=== PATIENT | female | born 1990 | race Caucasian/White ===

== ENCOUNTER 2025-07-16 19:31 | Emergency (ER) | payer SELFPAY ==
[2025-07-16 19:37] VITALS: BMI 16.8
[2025-07-16 19:38] VITALS: BP 114/76
--- NOTE | 2025-07-16 20:04 | ED.GENMED ---
History of Present Illness
General
Chief Complaint: Psychiatric Problem
Source: patient and ambulance crew
Exam Limitations: altered mental status
Time Seen by Provider: 07/16/25 19:38
Nursing documentation reviewed up to this point in time: agreed with
History of Present Illness
History of Present Illness:
34-year-old female via EMS apparently has OCD and Asperger's has been walking around knocking on neighbors doors family believe she is unsafe here she is unkept, has bruising on her bilateral elbows and thighs cannot tell me how it got there
Past History
Past History
ED Past Medical History: Psychiatric
Social History
Living: with family
Employment: Not employed
Family History
Family History: Unable to obtain (Patient poor historian)
Review of Systems
Review of Systems
Other source history: ambulance crew
All Other Systems: Not applicable
Phy Exam
Physical Exam
Physical Exam:
Physical Exam
General: Disheveled disorganized female
Neck: Pale appearing no overt signs of trauma
Heart: Regular
Lungs: no acute respiratory distress.
Neuro: alert and oriented. no focal neurological deficits
Skin: no rash
Psychiatric: Disorganized
Extremities: Bruising on her bilateral elbows bruising on her anterior thighs
Course
Orders/Labs/Results
Orders:
Orders
07/16/25 19:59
Elbow, 2 View, Right [CR Elbow - Right Min 2 View] Urgent
Comment:
Reason For Exam: byursing
Elbow, Left, 2 View [CR Elbow - Left Min 2 View] Urgent
Comment:
Reason For Exam: brusing
Femur, Left 2 View [CR Femur - Left Min 2 Vw] Urgent
Comment:
Reason For Exam: brusing
Femur, Right 2 View [CR Femur - Right Min 2 Vw] Urgent
Comment:
Reason For Exam: brusing
07/16/25 20:01
Crisis Consult Urgent
Reason for Consult: 302?
Test Result ONCE
07/16/25 20:04
CT Head W/o Iv Contrast Urgent
Comment:
Reason For Exam: ? trauma
07/16/25 20:05
CT Cervical Spine W/o Iv Contr Urgent
Comment:
Reason For Exam: trauma
07/16/25 20:23
Acetaminophen Urgent
Alcohol Urgent
Complete Blood Count/With Diff Urgent
Comprehensive Metabolic Panel Urgent
HCG, Serum Qualitative Screen Urgent
Salicylate Urgent
Abnormal Lab Results
07/16/25
20:23
RBC 3.89 L 10^6/uL
(4.20-5.40)
Hgb 11.7 L g/dL
(12.0-16.0)
Hct 35.8 L %
(37.0-47.0)
MCHC 32.7 L g/dL
(33.0-37.0)
Monocytes % 9.7 H %
(1.7-9.3)
Alkaline Phosphatase 32 L U/L
(38-126)
Salicylates < 1.0 L mg/dl
(2.0-20.0)
Acetaminophen < 10 L ug/ml
(10-30)
07/16/25 20:23
07/16/25 20:23
Vital Signs
Initial and Last Documented VS:
Initial Vital Signs
Temp Pulse Resp BP Pulse Ox
97.7 F 68 18 114/76 100
07/16/25 19:38 07/16/25 19:38 07/16/25 19:38 07/16/25 19:38 07/16/25 19:38
Last Documented Vital Signs
Temp Pulse Resp BP Pulse Ox
97.7 F 68 18 114/76 100
07/16/25 19:38 07/16/25 19:38 07/16/25 19:38 07/16/25 19:38 07/16/25 19:38
MDM/Problems Addressed
Differential Diagnosis Includes:
Mental illness falls trauma intoxication rhabdo
Chronic conditions affecting care: Psychiatric illness
Acute Exacerbation and/or Progression of Chronic Illness: Psychiatric illness
*Radiology
Radiology exam reviewed: preliminary read by ED provider
*Pulse Oximetry
Patient hypoxic: no
*Critical Care Note
Total Time (30-74mins, 75-104mins- exclusive of procedures): Not Applicable
Update Note
Update Note:
10:45 PM update labs noted plain films noted no obvious fracture awaiting CT reports
Patient has been cleared by crisis
ED Attending Note
-
Portions of this chart may have been created with voice recognition software.� Occasional wrong word or��sound alike� substitutions may have occurred due to the inherent limitations of voice recognition software.
Discharge Plan
Departure
Patient Disposition: Home (Routine Discharge)
Date of Disposition: 07/16/25
Time of Disposition: 22:59
Patient with high blood pressure during this ER visit?: No
Condition: Good
Discharge Problem:
Contusion
Instructions: Contusion, Minor contusion - ED (DC)
Referrals:
UNKNOWN - PT DOES,NOT KNOW [Family Provider]
Interventions
Interventions:
*Risk Screen - Suicide Last Done: 07/16/25 19:45
*General Assessment Last Done: 07/16/25 19:45
*Neglect/Abuse Screening Last Done: 07/16/25 19:45
*ED- Fall Risk Assessment Last Done: 07/16/25 19:45
*ED COVID-19 Vaccine History Last Done: 07/16/25 19:45
ED-Psychological Assessment Last Done: 07/16/25 21:30
Discharge Date and Time
Print Language: HUNGARIAN
[2025-07-16 20:38] LABS: Hematocrit 35.8 % (37.0-47.0); Hemoglobin 11.7 g/dL (12.0-16.0); Mean Corp Hgb Conc. 32.7 g/dL (33.0-37.0); Mean Corpuscular Volume 92.0 fL (81.0-99.0); Nucleated Red Blood Cells % 0 %; Platelet Count 168 10^3/uL (130-400); Red Cell Dist. Width 12.1 % (11.5-14.5)
[2025-07-16 20:59] LABS: HCG, Serum Qualitative Screen Negative
[2025-07-16 21:05] LABS: ALT (SGPT) 24 U/L (0-35); AST (SGOT) 26 U/L (14-36); Acetaminophen < 10 ug/ml (10-30); Albumin 4.8 g/dl (3.5-5.0); Alkaline Phosphatase 32 U/L (38-126); Blood Urea Nitrogen 16 mg/dl (7-17); Calcium 9.9 mg/dl (8.4-10.2); Carbon Dioxide 29 mmol/L (22-30); Chloride 104 mmol/L (98-107); Estimated Creatinine Clearance 84 ml/min; Glucose 84 mg/dl (70-99); Potassium 4.2 mmol/L (3.5-5.1); Salicylate < 1.0 mg/dl (2.0-20.0); Sodium 139 mmol/L (135-145); Total Protein 7.6 g/dl (6.3-8.2); eGFR > 60.00
== END 2025-07-16 23:51 | disposition home or self-care (01) ==
LOC: EMR 19:31
PROVIDERS: EMERGENCY PHYSICIAN Emergency Medicine
DX: S50.02XA Contusion of left elbow, initial encounter (principal); S50.01XA Contusion of right elbow, initial encounter; S70.12XA Contusion of left thigh, initial encounter; S70.11XA Contusion of right thigh, initial encounter; X58.XXXA Exposure to other specified factors, initial encounter; F84.5 Asperger's syndrome; F42.9 Obsessive-compulsive disorder, unspecified
CPT/HCPCS: 99284; 70450; 72125; 73070; 73552; 80053; 80143; 80179; 82077; 84703; 85025

== ENCOUNTER 2025-07-17 09:32 | Emergency (ER) | payer BC, SELFPAY ==
[2025-07-17 09:36] VITALS: BP 106/68
--- NOTE | 2025-07-17 12:14 | ED.GENMED ---
History of Present Illness
General
Chief Complaint: Change in Mental Status
Source: records and family
Time Seen by Provider: 07/17/25 11:18
History of Present Illness
History of Present Illness:
34 year old female with past medical history of Asperger syndrome, OCD, autism presenting back to the emergency department after being seen yesterday for reevaluation with family stating they have concern for patient's continued behavior noting that
she is wandering around the neighborhood, bringing neighbors doorbell's, attempted to jump out of a moving vehicle earlier in the week and reportedly said today that 'she did not want to harm herself' which had the mother concerned. It is unclear
as to why the patient stated she did not want to harm herself and I did repeatedly asked the question if the patient did want to harm herself to which she replied no. Parents brought patient back to the ER today to file a 302.
Past History
Past History
ED Past Medical History: Psychiatric
ED Past Surgical History: None
Social History
Tobacco: Non-smoker
Alcohol: None
Drug: None
Personal: Single
Living: with family
Employment: Not employed
Family History
Family History: Unable to obtain (Patient poor historian)
Review of Systems
Review of Systems
All Other Systems: ROS reviewed and negative except as documented in HPI and ROS
Phy Exam
Physical Exam
Physical Exam:
GENERAL: Alert , in no apparent distress, wandering around the halls of the ER, difficult to redirect but otherwise calm.
EYE: conjunctiva clear
Head: Normocephalic atraumatic
NECK: Supple,
ENT: mmm.
LUNGS: no acute respiratory distress
NEUROLOGICAL: Alert and oriented
SKIN: Warm and dry, skin intact.
MUSCULOSKELETAL: well perfused.
PSYCH: Normal and appropriate interaction.
Scores
Heart Failure Risk
Heart Failure Risk Score: Not Applicable
Heart Score for Chest Pain Patients
STEMI patient?: Not applicable
Withdrawal Assessment of Alcohol
Withdrawal Assessment Completed?: Not applicable
Course
Orders/Labs/Results
Orders:
Orders
07/17/25 11:37
Crisis Consult Urgent
Reason for Consult: mother filing 302
07/17/25 11:41
PSYCHIATRY CONSULT Urgent
Consulting Provider: Akira Amezcua
Was physician already notified: Yes
Vital Signs
Initial and Last Documented VS:
Initial Vital Signs
Temp Pulse Resp BP Pulse Ox
98.3 F 70 16 106/68 100
07/17/25 09:36 07/17/25 09:36 07/17/25 09:36 07/17/25 09:36 07/17/25 09:36
Last Documented Vital Signs
Temp Pulse Resp BP Pulse Ox
98.3 F 70 16 106/68 100
07/17/25 09:36 07/17/25 09:36 07/17/25 09:36 07/17/25 09:36 07/17/25 12:17
MDM/Problems Addressed
MDM/Problems Addressed:
34-year-old female presenting back to the emergency department for reevaluation and mother filing a 302 concern for patient's safety. Patient is denying any wish to self-harm. Crisis consult ordered. I did also order a psychiatry consult and
psychiatry will see the patient in the ER. Disposition pending
Chronic conditions affecting care: Psychiatric illness
*Pulse Oximetry
SaO2: 100
Oxygen Mode of Delivery: Room air
Patient hypoxic: no
*Critical Care Note
Total Time (30-74mins, 75-104mins- exclusive of procedures): Not Applicable
Data Reviewed
Review of Other/Old Records Reveals: Records
Patient Management
Escalation/DeEscalation of care consider admission/obs:
Patient seen by psychiatry. They will be sending the patient home with prescription for Abilify. Continue outpatient follow-up. Stable for discharge. Parents to take patient home.
ED Attending Note
-
Portions of this chart may have been created with voice recognition software.� Occasional wrong word or��sound alike� substitutions may have occurred due to the inherent limitations of voice recognition software.
Discharge Plan
Departure
Patient Disposition: Home (Routine Discharge)
Date of Disposition: 07/17/25
Time of Disposition: 14:19
Patient with high blood pressure during this ER visit?: No
Discharge Problem:
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
Referrals:
Elisabet Phillips MD [Family Provider, Family Practice]
Interventions
Interventions:
*Risk Screen - Suicide Last Done: 07/17/25 09:34
*General Assessment Last Done: 07/17/25 11:39
*Neglect/Abuse Screening Last Done: 07/17/25 12:00
*ED- Fall Risk Assessment Last Done: 07/17/25 11:39
*Nursing Disposition Last Done: 07/17/25 14:47
ED- Neurological Assessment Last Done: 07/17/25 12:00
ED- Pulmonary Assessment Last Done: 07/17/25 12:00
ED Swallowing Screen Last Done: 07/17/25 12:00
Discharge Date and Time
Discharge Date/Time: 07/17/25 14:47
Print Language: TELUGU
--- NOTE | 2025-07-17 14:22 | W.PN.UPDATE ---
Update Note
Progress Note Update
Psychiatric Evaluation dictated.
Patient seen due to impulsive behaviors including walking out of the house when parents are asleep and knocking on neighbors doors as well as hitting windows to the point of bruising and attenpting to get out of the marlys in motion. She has ASD
diagnosed since 5yo but the impulsive aggressive behaviors are worse recently.
AT this point parents are not interested in inpatient hospitalization or residential placement. Will call in Abilify 2 mg hs which can be used in ASD with agressive behaviors , side effects discussed.
Parents advised to bring patient back if symptoms worsen.
== END 2025-07-17 14:47 | disposition home or self-care (01) ==
LOC: EMR 09:32
PROVIDERS: CONSULT PHYSICIAN Psychiatry & Neurology Psychiatry; EMERGENCY PHYSICIAN Emergency Medicine; FAMILY PHYSICIAN Family Medicine
DX: F43.25 Adjustment disorder with mixed disturbance of emotions and conduct (principal); F84.5 Asperger's syndrome
CPT/HCPCS: 99283

== ENCOUNTER 2025-07-19 15:00 | Emergency (ER) | payer BC, SELFPAY ==
[2025-07-19 15:05] VITALS: BMI 16.6
[2025-07-19 15:10] VITALS: BP 98/74
[2025-07-19] MEDS: ATIVAN 1 MG PO (16:27)
--- NOTE | 2025-07-19 18:10 | ED.GENMED ---
History of Present Illness
General
Chief Complaint: Psychiatric Problem
Source: patient
Exam Limitations: none
Time Seen by Provider: 07/19/25 15:24
Nursing documentation reviewed up to this point in time: agreed with
History of Present Illness
History of Present Illness:
Patient with history of autism, presents to ED secondary to increased agitation noted by family this afternoon. Patient was seen in ED for similar complaint 2 days ago, during which time she was evaluated by psychiatrist and was prescribed Abilify.
Per family, patient took first dose of Abilify yesterday and was doing well today. However, when she was asked to accompany her parents for an appointment, as parents did not want to leave the patient by herself at home, patient refused to get in
the car. Afterwards, patient ran away from them and went to her neighbors house. Shortly afterwards, patient went towards the street, prompting parents to call 911. Upon arrival to ED, patient is alert and awake, but agitated. Offers no
additional information.
Past History
Past History
ED Past Medical History: Psychiatric
ED Past Surgical History: None
Social History
Tobacco: Non-smoker
Alcohol: None
Drug: None
Personal: Single
Living: with family
Employment: Not employed
Family History
Family History: Unable to obtain (Patient poor historian)
Review of Systems
Review of Systems
Unable to obtain full review of systems at this time due to: due to acuity
All Other Systems: Not applicable
Phy Exam
Physical Exam
Physical Exam:
Physical Exam
General: no apparent distress, not acutely ill. afebrile
Head: nc/at. eomi
Neck: supple. normal range of motion.
Heart: s1/s2 regular rate and rhythm
Lungs: no acute respiratory distress. clear bilaterally
Abdomen: normal bowel sounds. not tender.
Neuro: alert and oriented x 3. no focal neurological deficits
Skin: no rash
Psychiatric: well kept. agitated
Extremities: no edema. no calf tenderness
Course
Orders/Labs/Results
Orders:
Orders
07/19/25 15:32
Crisis Consult Urgent
Reason for Consult: self-harming behavior
07/19/25 15:37
Crisis Consult Urgent
Reason for Consult: police called to house. brought in by EMS. family requesting 302
07/19/25 16:14
Lorazepam [Ativan] 1 mg PO NOW STA
07/19/25 20:41
ED Special Safety Observation ONCE
Observation level: One to Two
07/19/25 23:56
Consult Notification Routine
Specialty to Notify: Psychiatry
Date consulting provider notified: 07/20/25
Time consulting provider notified: 07:03
Notified:: Provider
PSYCHIATRY CONSULT Urgent
Consulting Provider: Kimberly Raymond
Was physician already notified: No
Reason for consult: agitation
07/20/25 02:04
Lorazepam [Ativan] 1 mg .ROUTE .STK-MED ONE
07/20/25 02:07
Lorazepam [Ativan] 1 mg PO NOW STA
Vital Signs
Initial and Last Documented VS:
Initial Vital Signs
Temp Pulse Resp BP Pulse Ox
98.9 F 98 18 98/74 99
07/19/25 15:10 07/19/25 15:10 07/19/25 15:10 07/19/25 15:10 07/19/25 15:10
Last Documented Vital Signs
Temp Pulse Resp BP Pulse Ox
98.8 F 98 16 94/55 100
07/19/25 23:31 07/20/25 07:00 07/20/25 07:00 07/20/25 07:00 07/20/25 07:00
MDM/Problems Addressed
MDM/Problems Addressed:
After evaluation by Monika wells, patient evaluated by telepsychiatry, who does not feel the patient would benefit from inpatient treatment at this time. However, in light of patient's multiple similar episodes this week, requiring
evaluation in ED, patient will be observed further tonight, with plan to be evaluated by Dr. Raymond, psychiatry, in a.m., for further recommendation.
*Pulse Oximetry
SaO2: 99
Oxygen Mode of Delivery: Room air
Patient hypoxic: no
*Critical Care Note
Total Time (30-74mins, 75-104mins- exclusive of procedures): Not Applicable
ED Attending Note
-
Portions of this chart may have been created with voice recognition software.� Occasional wrong word or��sound alike� substitutions may have occurred due to the inherent limitations of voice recognition software.
Discharge Plan
Departure
Patient Disposition: Home (Routine Discharge)
Patient with high blood pressure during this ER visit?: Yes
Condition: Fair
Discharge Problem:
Autism
Referrals:
UNKNOWN - PT DOES,NOT KNOW [Family Provider]
Interventions
Interventions:
*Risk Screen - Suicide Last Done: 07/20/25 07:00
*General Assessment Last Done: 07/19/25 15:26
*Neglect/Abuse Screening Last Done: 07/20/25 03:14
*ED- Fall Risk Assessment Last Done: 07/19/25 15:26
*ED COVID-19 Vaccine History Last Done: 07/19/25 15:26
*Nursing Disposition Last Done: 07/20/25 11:45
ED-Psychological Assessment Last Done: 07/20/25 07:00
Discharge Date and Time
Discharge Date/Time: 07/20/25 11:45
Print Language: KAZAKH
[2025-07-19 19:02] VITALS: BP 109/54
[2025-07-19 23:31] VITALS: BP 98/65
[2025-07-20 01:35] VITALS: BP 100/65
[2025-07-20] MEDS: ATIVAN 1 MG PO (02:09)
[2025-07-20 07:00] VITALS: BP 94/55
--- NOTE | 2025-07-20 10:20 | W.PN.UPDATE ---
Update Note
Progress Note Update
patient seen to discuss further management. case reviewed, including two previous ED visits and events of last night's 302. long phone disucssino with father. patient has been diagnosed with autism since age 5, had seizure disorder till teens, was
on dilantin and tenex but weaned off. 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 stressors at present are the moving away of brother (master's level psychologist) who recently and has been living with inlaws
for 3 weeks, making settlement today on home in [facility]. Teresa recently had stroke. pt has been refusing to follow parents' orders, did not want to go in car with them yesterday and ran away. police involved many times over past few
weeks, has been going to neighbors' homes complaining of being beaten by family and police.
father has been referred to services, but pt does not have Medicaid, and most providers unwilling to take her without that (has been in touch with [facility], they have assigned a person for her to see but are waiting for Medicaid.)
Pt receives SSI, so should qualify, but father has only recently begun pursuit of this.
Will try to get pt set up for telephonic nurse case manager who can assist with making all this happen.
Discussed with father the practical issues of hospitalization. she is not voluntary, and not really dangerous in any acute way. any improvements which might be gained by observation in hospital setting are unlikely to match the very great distress
she is likely to experience being away from home (and gains might not translate to out of hospital life.) Setting up hospital as a place she can go to if things are not working out at home is a dangerous precedent which should be avoided, lest she
have a lifetime of repeated hospital stays.
father is with pt's mother at appointment in [place], will be here in about an hour. Will try to set up outpatient case menagement.
Continue abilify
== END 2025-07-20 11:45 | disposition home or self-care (01) ==
LOC: EMR 15:00
PROVIDERS: CONSULT PHYSICIAN Psychiatry & Neurology Psychiatry; EMERGENCY PHYSICIAN Emergency Medicine
DX: R45.1 Restlessness and agitation (principal); F84.0 Autistic disorder
CPT/HCPCS: 99282